=== PATIENT | male | born 1940 | race Two or more races ===

== ENCOUNTER → 2016-04-30 | Outpatient (CLI) | payer MEDICARE, OTHER ==
[~2016-04-30] MED LIST: ASPIR 8181 MG ORAL; CARVEDILOL3.125 MG ORAL; COLACE100 MG ORAL; FISH OIL 500 M1 EAC1 PO; FLOMAX0.4 MG ORAL; KEFLEX500 MG ORAL; LOSARTAN POTASS25 MG ORAL; LOVAZA1 GM ORAL; PROSCAR5 MG ORAL; SIMVASTATIN20 MG ORAL; TAMSULOSIN HCL0.4 MG ORAL
[2016-04-30 09:18] LABS: BASOPHILS % (AUTO) 1.5 % (0.0-2.0); EOSINOPHILS % (AUTO) 5.5 % (0.0-3.0); LYMPHOCYTES % (AUTO) 23.8 % (20.0-45.0); MEAN CORPUSCULAR HEMOGLOBIN 27.6 PG (27.0-31.0); MEAN CORPUSCULAR HGB CONC 31.7 G/DL (32.0-36.0); MEAN CORPUSCULAR VOLUME 87 FL (80-99); MEAN PLATELET VOLUME 6.1 FL (6.5-10.1); MONOCYTES % (AUTO) 5.7 % (1.0-10.0); NEUTROPHILS % (AUTO) 63.6 % (45.0-75.0); PLATELET COUNT 276 K/UL (150-450); RED BLOOD COUNT 5.69 M/UL (4.70-6.10); RED CELL DISTRIBUTION WIDTH 12.5 % (11.6-14.8); WHITE BLOOD COUNT 9.2 K/UL (4.8-10.8)
[2016-04-30 09:26] LABS: HEMOGLOBIN A1C 8.2 % (< 6.0)
[2016-04-30 09:52] LABS: CHOLESTEROL/HDL RATIO 4.6 (3.3-4.4)
[2016-04-30 10:13] LABS: PSA TOTAL 0.2 ng/mL (< 4.5); THYROID STIMULATING HORMONE 5.08 uIU/mL (0.300-4.500)
--- NOTE | 2016-04-30 11:34 | Diagnostic Imaging Report ---
Indications: COUGH Technique: AP and lateral chest Findings: Comparison: 04/16/13, 08/23/2009 Inspiratory effort has improved. Heart size, pulmonary vasculature within normal limits. Lungs, pleura clear. Aortic arch calcified. Bridging osteophytes/syndesmophytes along the anterior margin of the thoracic spine. 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
[2016-05-02 09:37] LABS: FOLIC ACID 15.4 ng/mL (3.1-17.5)
== END | disposition home or self-care (01) ==
LOC: RAD 08:18
DX: R06.02 Shortness of breath (principal); I70.0 Atherosclerosis of aorta; Z86.73 Personal history of transient ischemic attack (TIA), and cerebral infarction without residual deficits; I10 Essential (primary) hypertension; I73.9 Peripheral vascular disease, unspecified; I25.10 Atherosclerotic heart disease of native coronary artery without angina pectoris
CPT/HCPCS: 36415; 71020; 80061; 82607; 82746; 83036; 84153; 84443; 85025

== ENCOUNTER 2016-10-19 06:02 | Emergency (ER) | payer MEDICARE, OTHER ==
[~2016-10-19] VITALS: Ht 160 cm; Wt 104.8 kg
[2016-10-19 06:15] VITALS: BP 135/66
--- NOTE | 2016-10-19 06:49 | Emergency Room Report ---
History of Present Illness General Chief Complaint: Abnormal Labs Source: Patient, Family Member Present Illness HPI Is a 76-year-old male with a history of hypertension and diabetes. he presents here for lab draw. He actually checked in here instead of going to outpatient lab. He has no complaint. No fever or chills. No nausea no vomiting. Allergies: Coded Allergies: No Known Allergies (Verified Allergy, Unknown, 08/12/06) Patient History Past Medical History: see triage record, old chart reviewed, DM, HTN Past Surgical History: other Pertinent Family History: none Social History: Denies: smoking Immunizations: other Reviewed Nursing Documentation: PMH: Agreed, PSxH: Agreed Nursing Documentation-PMH Hx Cardiac Problems: No Hx Hypertension: Yes - hyperlipidemia Hx Pacemaker: No Hx Asthma: No Hx COPD: No Hx Diabetes: Yes Hx Cancer: No Hx Gastrointestinal Problems: No Hx Dialysis: No Hx Neurological Problems: No Hx Cerebrovascular Accident: Yes - 2006 Hx Seizures: No Review of Systems Eye: Denies: blurred vision, eye pain ENT: Denies: ear pain, nose congestion, throat swelling Respiratory: Denies: cough, shortness of breath Cardiovascular: Denies: chest pain, palpitations Gastrointestinal: Denies: abdominal pain, diarrhea, nausea, vomiting Musculoskeletal: Denies: back pain, joint pain Skin: Denies: rash Neurological: Denies: headache, numbness Endocrine: Denies: increased thirst, increased urine Hematologic/Lymphatic: Denies: easy bruising All Other Systems: negative except mentioned in HPI Physical Exam Vital Signs Date Time Temp Pulse Resp B/P Pulse Ox O2 Delivery O2 Flow Rate FiO2 10/19/16 06:09 97.5 61 14 135/66 95 Room Air vitals normal Sp02 EP Interpretation: reviewed, normal General Appearance: well appearing, no apparent distress, alert, obese Head: normocephalic, atraumatic Eyes: bilateral eye EOMI, bilateral eye PERRL ENT: hearing grossly normal, normal pharynx Neck: full range of motion, supple, no meningismus Respiratory: chest non-tender, lungs clear, normal breath sounds Cardiovascular #1: regular rate, rhythm, no murmur Gastrointestinal: normal bowel sounds, non tender, no mass, no organomegaly, no bruit, non-distended Musculoskeletal: back normal, gait/station normal, normal range of motion Psychiatric: mood/affect normal Skin: warm/dry Medical Decision Making Diagnostic Impression: Primary Impression: General medical exam Additional Impression: Routine lab draw ER Course Patient here for routine lab draw. Because that he clipped on the patient's name and her started triage the patient, he cannot be done as an outpatient. Last Vital Signs Date Time Temp Pulse Resp B/P Pulse Ox O2 Delivery O2 Flow Rate FiO2 10/19/16 06:15 97.5 61 14 135/66 95 Room Air Status: improved Disposition: HOME, SELF-CARE Condition: Stable Additional Instructions: Followup with your Dr. in 7 days. Return if worse. ISABELLA MORRIS M.D. Oct 19, 2016 06:49
[2016-10-19 06:50] VITALS: BP 138/60
[2016-10-19 07:13] LABS: BASOPHILS % (AUTO) 1.5 % (0.0-2.0); EOSINOPHILS % (AUTO) 4.8 % (0.0-3.0); LYMPHOCYTES % (AUTO) 26.9 % (20.0-45.0); MEAN CORPUSCULAR HEMOGLOBIN 28.4 PG (27.0-31.0); MEAN CORPUSCULAR HGB CONC 33.2 G/DL (32.0-36.0); MEAN CORPUSCULAR VOLUME 86 FL (80-99); MEAN PLATELET VOLUME 6.3 FL (6.5-10.1); MONOCYTES % (AUTO) 6.7 % (1.0-10.0); NEUTROPHILS % (AUTO) 60.2 % (45.0-75.0); PLATELET COUNT 231 K/UL (150-450); RED BLOOD COUNT 4.99 M/UL (4.70-6.10); RED CELL DISTRIBUTION WIDTH 12.6 % (11.6-14.8); WHITE BLOOD COUNT 9.4 K/UL (4.8-10.8)
[2016-10-19 07:41] LABS: PSA TOTAL 0.2 ng/mL (< 4.5)
[2016-10-19 08:02] LABS: CHLORIDE 103 mEQ/L (98-107); POTASSIUM 4.2 mEQ/L (3.4-4.9); SODIUM 140 mEQ/L (135-145)
[2016-10-19 08:03] LABS: ANION GAP 14 (5-15); CALCIUM 9.2 mg/dL (8.6-10.2); CARBON DIOXIDE 23 mEQ/L (20-30); CREATININE 1.4 mg/dL (0.7-1.2); MAGNESIUM 2.2 MG/DL (1.5-2.4); PHOSPHORUS 4.4 MG/DL (2.5-4.9)
[2016-10-19 08:04] LABS: ALANINE AMINOTRANSFERASE 7 U/L (3-41); ASPARTATE AMINO TRANSFERASE 19 U/L (5-40); CHOLESTEROL 133 mg/dL (< 200); CHOLESTEROL/HDL RATIO 3.8 (3.3-4.4); LDL CHOLESTEROL (CALC.) 71 mg/dL (60-99)
== END 2016-10-19 06:50 | disposition home or self-care (01) ==
LOC: EMR 06:32
DX: Z00.00 Encounter for general adult medical examination without abnormal findings (principal); I10 Essential (primary) hypertension; E78.5 Hyperlipidemia, unspecified; E11.9 Type 2 diabetes mellitus without complications; Z86.73 Personal history of transient ischemic attack (TIA), and cerebral infarction without residual deficits
CPT/HCPCS: 36415; 80053; 80061; 82306; 82378; 82607; 82746; 83036; 83735; 84100; 84153; 84443; 85025; 99282

== ENCOUNTER 2016-12-30 08:11 | Outpatient (CLI) | payer MEDICARE, OTHER ==
[2016-12-30 09:20] LABS: THYROID STIMULATING HORMONE 4.11 uIU/mL (0.300-4.500)
== END 2016-12-30 10:11 | disposition home or self-care (01) ==
LOC: LAB 08:11
DX: R94.6 Abnormal results of thyroid function studies (principal)
CPT/HCPCS: 36415; 84436; 84443; 84480

== ENCOUNTER 2017-06-24 09:00 | Outpatient (CLI) | payer MEDICARE, OTHER ==
[2017-06-24 09:26] VITALS: BP 129/50
--- NOTE | 2017-06-24 10:15 | GI Initial Consult Note ---
Shivani Personh Hunter NMykePMyke 06/24/17 1015: History of Present Illness General Date patient seen: Jun 24, 2017 Time patient seen: 10:09 Referring physician: JOSHUA Reason for Consultation: RECTAL BLEED Present Illness HPI This is 72-year-old, gentleman referred by Dr. Sam for reports of rectal bleed x 2-3 weeks. Last colonoscopy in 2013, with history of diverticulosis, hemorrhoids and polyps. Patient was on aspirin which he has stopped on 06/17/17. Denies any abdominal pain. Denies any unintentional weight loss or changes in dietary habits. Home Meds Reported Medications [DM med] No Conflict Check 06/24/17 Docusate Sodium* (COLACE*) 100 Mg Capsule, 100 MG ORAL TWICE A DAY, CAP 11/25/13 Tamsulosin HCl (Flomax) 0.4 Mg Cap, 0.4 MG ORAL DAILY, CAP 11/25/13 Losartan Potassium* (LOSARTAN POTASSIUM*) 25 Mg Tablet, 100 MG ORAL HS, TAB 04/16/13 Simvastatin (ZOCOR) 20 Mg Tablet, 20 MG ORAL BEDTIME, TAB 10/03/12 Carvedilol* (CARVEDILOL*) 3.125 Mg Tablet, 3.125 MG ORAL EVERY 12 HOURS, TAB 10/03/12 Discontinued Reported Medications [place]-3 Acid Ethyl Esters (LOVAZA) 1 Gm Capsule, 1 GM ORAL DAILY, #30 CAP 0 Refills 07/13/13 Aspirin* (ASPIR 81*) 81 Mg Tablet.dr, 81 MG ORAL DAILY, TAB 10/03/12 Med list reviewed/reconciled: Yes Allergies: Coded Allergies: No Known Allergies (Verified Allergy, Unknown, 08/12/06) Patient History History Provided By: Patient, Medical Record [facility] Narrative History of hypertension. Prior history of stroke with memory impairment. History of dyslipidemia. Dark stool with an EGD and colonoscopy with Dr. Duke. Obstructive sleep apnea with the AHI of 53.8, CPAP titration of 14-cm water noncompliance with CPAP. History of mild obesity. Ruptured appendix in 1968, bilateral cataract surgery, cholecystectomy in August of 2009. Family History Narrative SOCIAL HISTORY: Patient is retired grajeda. He is , has from his . No smoking, alcohol or drugs. FAMILY HISTORY: Noncontributory Social History: Denies: smoking, alcohol use, drug use, other Review of Systems All Other Systems: negative except mentioned in HPI Physical Exam Vital Signs Date Time Temp Pulse Resp B/P (MAP) Pulse Ox O2 Delivery O2 Flow Rate FiO2 06/24/17 09:26 98.0 68 18 129/50 95 98.0 Sp02 EP Interpretation: reviewed, normal General Appearance: well appearing, no apparent distress, alert, thin Head: normocephalic EENT: PERRL/EOMI, normal ENT inspection Neck: supple Respiratory: normal breath sounds, no respiratory distress Cardiovascular: normal rate Gastrointestinal: normal inspection, non tender, soft, normal bowel sounds, non -distended Rectal: deferred Genitourinary: deferred Musculoskeletal: normal inspection, back normal Neurologic: normal inspection, alert, oriented x3, responsive Psychiatric: normal inspection, judgement/insight normal, memory normal Skin: normal inspection, normal color, no rash, warm/dry, palpation normal, well hydrated Lymphatic: normal inspection, no adenopathy GI: Plan Problems: (1) Rectal bleeding (2) Colonoscopy planned (3) Diverticulosis (4) Colon polyps (5) Cirrhosis (6) Internal hemorrhoid Plan Colonoscopy scheduled 06/27/17. - CLD & (Nulytely/Suprep/Movi-Prep) prep instructions given and acknowledged by patient. - NPO @ [place] day prior procedure explained. Seen with Dr. Duke. Thank you for this patient referral. MICHAEL DUKE 07/01/17 5059: History of Present Illness Present Illness Home Meds Reported Medications [DM med] No Conflict Check 06/24/17 Docusate Sodium* (COLACE*) 100 Mg Capsule, 100 MG ORAL TWICE A DAY, CAP 11/25/13 Tamsulosin HCl (Flomax) 0.4 Mg Cap, 0.4 MG ORAL DAILY, CAP 11/25/13 Losartan Potassium* (LOSARTAN POTASSIUM*) 25 Mg Tablet, 100 MG ORAL HS, TAB 04/16/13 Simvastatin (ZOCOR) 20 Mg Tablet, 20 MG ORAL BEDTIME, TAB 10/03/12 Carvedilol* (CARVEDILOL*) 3.125 Mg Tablet, 3.125 MG ORAL EVERY 12 HOURS, TAB 10/03/12 Discontinued Reported Medications [place]-3 Acid Ethyl Esters (LOVAZA) 1 Gm Capsule, 1 GM ORAL DAILY, #30 CAP 0 Refills 07/13/13 Aspirin* (ASPIR 81*) 81 Mg Tablet., 81 MG ORAL DAILY, TAB 10/03/12 Allergies: Coded Allergies: No Known Allergies (Verified Allergy, Unknown, 08/12/06) GI: Plan Plan The patient was seen and examined at bedside and all new and available data was reviewed in the patients chart. I agree with the above findings, impression and plan. (Patient seen earlier today. Signature stamp does not reflect patient encounter time.). - [facility] Hunter Gloria Jun 24, 2017 10:15 MICHAEL DUKE Jul 01, 2017 13:29
[2017-06-24] MEDS ORDERED: DM med (13:10)
== END 2017-06-24 09:32 | disposition home or self-care (01) ==
LOC: PAN 09:00
DX: K62.5 Hemorrhage of anus and rectum (principal); K57.90 Diverticulosis of intestine, part unspecified, without perforation or abscess without bleeding; K63.5 Polyp of colon; K74.60 Unspecified cirrhosis of liver; K64.8 Other hemorrhoids; Z79.82 Long term (current) use of aspirin; G47.33 Obstructive sleep apnea (adult) (pediatric); E78.5 Hyperlipidemia, unspecified; Z90.49 Acquired absence of other specified parts of digestive tract

== ENCOUNTER 2017-06-27 07:11 | Day surgery (SDC) | payer MEDICARE, OTHER ==
[~2017-06-27] VITALS: Ht 157.5 cm; Wt 99.8 kg
[2017-06-27] VITALS (12 sets, daily range): BP systolic 117–141; BP diastolic 54–70
[~2017-06-27 07:11] MED LIST changes: +DM med
--- NOTE | 2017-06-27 08:28 | Pre-Procedure Note/Attestation ---
Pre-Procedure Note/Attestation Complete Prior to Procedure Planned Procedure: not applicable Procedure Narrative: colonoscopy Indications for Procedure Pre-Operative Diagnosis: rectal bleed, h/o colon polyps Attestation I attest that I discussed the nature of the procedure; its benefits; risks and complications; and alternatives (and the risks and benefits of such alternatives ), prior to the procedure, with the patient (or the patient's legal floor representative). I attest that, if there was a reasonable possibility of needing a blood transfusion, the patient (or the patient's legal floor representative) was given the [facility] standardized written summary, pursuant to the Randall Magdy Blood Safety Act ([place] Health and Safety Code # 1645, as amended). I attest that I re-evaluated the patient just prior to the surgery and that there has been no change in the patient's H&P, except as documented below: MICHAEL DUKE Jun 27, 2017 08:28
--- NOTE | 2017-06-27 08:28 | Short Stay Surgery H&P ---
History of Present Illness History of Present Illness Chief Complaint see recent office consult note HPI Antonio Maldonado is a 76 year old male who was admitted on for Rectal Bleeding Patient History Allergies: Coded Allergies: No Known Allergies (Verified Allergy, Unknown, 08/12/06) PAST MEDICAL HISTORY: Past Surgeries: Social History: Medication History Scheduled Carvedilol* (Carvedilol*), 3.125 MG ORAL EVERY 12 HOURS, (Reported) Docusate Sodium* (Colace*), 100 MG ORAL TWICE A DAY, (Reported) Losartan Potassium* (Losartan Potassium*), 100 MG ORAL HS, (Reported) Simvastatin (Zocor), 20 MG ORAL BEDTIME, (Reported) Tamsulosin HCl (Flomax), 0.4 MG ORAL DAILY, (Reported) Miscellaneous Medications [DM med], (Reported) Discontinued Medications Aspirin* (Aspir 81*), 81 MG ORAL DAILY, (Reported) Discontinued Reason: MD discontinued med [place]-3 Acid Ethyl Esters (Lovaza), 1 GM ORAL DAILY, (Reported) Discontinued Reason: MD discontinued med Physical Exam Vital Signs Last Vital Signs Date Time Temp Pulse Resp B/P (MAP) Pulse Ox O2 Delivery O2 Flow Rate FiO2 06/27/17 07:40 97.2 67 20 117/54 96 Room Air 97.2 Plan Attestation Are the patient's medical conditions optimized for surgery? MICHAEL DUKE Jun 27, 2017 08:28
[2017-06-27] MEDS ORDERED: LR 1000ml ONE (09:00)
[2017-06-27] MEDS ORDERED: Propofol 200mg/20ml IV ONE (09:00)
[2017-06-27] MEDS ORDERED: Lidocaine 1% MPF 10mg/ml 5ml ONE (09:00)
--- NOTE | 2017-06-27 09:39 | Immediate Post-Op Evaluation ---
Immediate Post-Op Evalulation Immediate Post-Op Evalulation Procedure: colonoscopy Date of Evaluation: Jun 27, 2017 Time of Evaluation: 09:39 IV Fluids: 600 Blood Pressure Systolic: 129 Blood Pressure Diastolic: 59 Pulse Rate: 67 Respiratory Rate: 14 O2 Sat by Pulse Oximetry: 99 Temperature (Fahrenheit): 97.7 Pain Score (1-10): 0 Nausea: No Vomiting: No Complications none Patient Status: awake, reacts, patent Hydration Status: adequate Drug: none KALANI DEAL CRNA Jun 27, 2017 09:39
--- NOTE | 2017-06-27 09:41 | Anethesia Preoperative Eval ---
Anesthesia Pre-op PMH/ROS General Date of Evaluation: Jun 27, 2017 Time of Evaluation: 09:00 Anesthesiologist: tequila ASA Score: ASA 3 Mallampati Score Class I : Soft palate, uvula, fauces, pillars visible Class II: Soft palate, uvula, fauces visible Class III: Soft palate, base of uvula visible Class IV: Only hard plate visible Mallampati Classification: Class III Surgeon: renny Diagnosis: rectal bleed Surgical Procedure: colonoscopy Anesthesia History: none Family History: no anesthesia problems Allergies: Coded Allergies: No Known Allergies (Verified Allergy, Unknown, 08/12/06) Medications: see eMAR Past Medical History Cardiovascular: Reports: HTN, CAD Pulmonary: Reports: ABENA, Denies: asthma, COPD, other Gastrointestinal/Genitourinary: Reports: GERD, Denies: CRI, ESRD, other Neurologic/Psychiatric: Reports: CVA, Denies: dementia, depression/anxiety, TIA, other Endocrine: Reports: DM, Denies: hypothyroidism, steroids, other HEENT: Denies: cataract (L), cataract (R), glaucoma, STILL[place] (L), STILLAGUAMISH (R), other Hematology/Immune: Denies: anemia, DVT, bleeding disorder, other Musculoskeletal/Integumentary: Denies: OA, RA, DJD, DDD, edema, other Other: obesity PSxH Narrative: unknown Anesthesia Pre-op Phys. Exam Physician Exam Last Vital Signs Date Time Temp Pulse Resp B/P (MAP) Pulse Ox O2 Delivery O2 Flow Rate FiO2 06/27/17 07:40 97.2 67 20 117/54 96 Room Air 97.2 Constitutional: NAD Neurologic: CN 2-12 intact Cardiovascular: RRR Respiratory: CTA Gastrointestinal: S/NT/ND Airway Exam Mallampati Classification 3 Mallampati Score: Class III MO: limited Neck: thick ROM: full Dentures: no upper, no lower Anesthesia Pre-op A/P Studies Pre-op Studies: EKG - sr Risk Assessment & Plan Plan: mac Status Change Before Surgery: No Pre-Antibiotics Drug: none KALANI DEAL CRNA Jun 27, 2017 09:41
--- NOTE | 2017-06-27 09:47 | Endoscopy Procedure Note ---
Endoscopy Procedure Note General Indication for Procedure: gib, polyps Procedures Performed: colonoscopy Operative Findings/Diagnosis: 8 polyps Specimen: yes Pt Tolerated Procedure Well: Yes Estimated Blood Loss: none Anesthesia Anesthesiologist: jone Anesthesia: MAC Inserted Devices Implant(s) used?: No Quality Quality of Bowel Preparation: Good Did scope reach the cecum?: Yes Was there any complications?: No GI Core Measures 50 yrs or older w/o bx or poly: No 10yrs. F/U not recommended: Yes If not recommended, why?: Above average risk 10 yrs. F/U needed: Yes 18 years or older w/prev. colo: Yes <3yrs. since last colonoscopy: No MICHAEL DUKE Jun 27, 2017 09:47
--- NOTE | 2017-06-27 13:48 | 48 Hour Post Anesthesia Eval ---
Post Anesthesia Evaluation Procedure: colonoscopy Date of Evaluation: Jun 27, 2017 Time of Evaluation: 13:48 Blood Pressure Systolic: 125 0: 69 Pulse Rate: 67 Respiratory Rate: 14 O2 Sat by Pulse Oximetry: 99 Airway: patent Nausea: No Vomiting: No Hydration Status: adequate Cardiopulmonary Status: stable Mental Status/LOC: patient returned to baseline Follow-up Care/Observations: none Post-Anesthesia Complications: none Follow-up care needed: N/A KALANI DEAL CRNA Jun 27, 2017 13:48
--- NOTE | 2017-06-27 17:45 | Procedure Note ---
DATE OF PROCEDURE: 06/27/2017 SURGEON: Bon Bryant M.D. REFERRING PHYSICIAN: Artur Sam M.D. PROCEDURE: Colonoscopy with biopsy and polypectomy. ANESTHESIA: Per LEGAL DOCUMENT SPECIALIST, Ashwini Corrales. INSTRUMENT: Olympus adult flexible colonoscope. INDICATION: Rectal bleeding, history of colonic polyp. The procedure, risks, benefits, and possible consequences, including hemorrhage, aspiration, perforation and infection, and alternative treatments, were explained to the patient/legal guardian by Dr. Bon Bryant and the patient/legal guardian understood and accepted these risks. DESCRIPTION OF PROCEDURE: After informed consent was obtained and the patient was adequately sedated, first rectal examination was performed which was positive for external hemorrhoids. Then the scope was advanced from the rectum into the cecum documented by the appendiceal orifice, ileocecal valve, and right upper quadrant palpation. Quality of prep was very good. The patient had a total of eight polyps, six in the ascending colon and two in the transverse colon polyps, so a total of eight polyps. Of these polyps, three of them were removed with cold snare polypectomy technique. None of these polyps were over 6 mm. The patient had evidence of diverticulosis, both in the left and right colon. Retroflexion of the rectum was performed which showed small internal hemorrhoids. The patient tolerated the procedure very well without any complications. SUMMARY OF FINDINGS: 1. Total of eight polyps removed. See above for details. 2. Diverticulosis. 3. Small internal hemorrhoids and some larger external hemorrhoids. RECOMMENDATIONS: 1. Follow up biopsy results. 2. Repeat colonoscopy in three years. 3. Treat for external hemorrhoids, positive the source of bleeding. I want to thank Dr. Artur Sam for this kind referral. Bon Bryant M.D. DR: Shahid JOB#: [id number] CC: Artur Sam M.D.; Fax#: [phone]
--- NOTE | 2017-06-29 16:33 | Cardiology Report ---
APPROVED REPORT EKG Measurement Heart [id number] Normal sinus rhythm Normal ECG
== END 2017-06-27 11:30 | disposition home or self-care (01) ==
LOC: GAS 07:11
DX: D12.2 Benign neoplasm of ascending colon (principal); D12.3 Benign neoplasm of transverse colon; K57.90 Diverticulosis of intestine, part unspecified, without perforation or abscess without bleeding; K64.8 Other hemorrhoids; K64.4 Residual hemorrhoidal skin tags; Z79.82 Long term (current) use of aspirin; I11.9 Hypertensive heart disease without heart failure; G47.33 Obstructive sleep apnea (adult) (pediatric); K21.9 Gastro-esophageal reflux disease without esophagitis; E11.9 Type 2 diabetes mellitus without complications; Z86.73 Personal history of transient ischemic attack (TIA), and cerebral infarction without residual deficits
CPT/HCPCS: 45380; 82962; 93005; J2704; J7120; 94003; 94150

== ENCOUNTER 2018-03-04 09:00 | Outpatient (RCR) | payer MEDICARE, OTHER ==
[~2018-03-04 09:00] MED LIST changes: +ASPIRIN81 MG ORAL
== END 2018-03-20 | disposition home or self-care (01) ==
LOC: PTY 09:00
DX: R26.89 Other abnormalities of gait and mobility (principal); Z86.73 Personal history of transient ischemic attack (TIA), and cerebral infarction without residual deficits; Z91.81 History of falling; I10 Essential (primary) hypertension; E11.9 Type 2 diabetes mellitus without complications
CPT/HCPCS: 97110; 97116; 97162; G8978; G8979

== ENCOUNTER 2019-03-23 09:38 | Outpatient (CLI) | payer MEDICARE, OTHER ==
--- NOTE | 2019-03-24 10:34 | General Progress Note ---
Assessment/Plan Problem List: (1) History of cholecystectomy ICD Codes: Z98.89 - History of cholecystectomy SNOMED: 274441454 (2) Multiple injuries due to trauma ICD Codes: T07.XXXA - Unspecified multiple injuries, initial encounter SNOMED: 762020318 (3) Colon polyps ICD Codes: K63.5 - Colon polyps SNOMED: 51752007 (4) Internal hemorrhoid ICD Codes: K64.8 - Internal hemorrhoid SNOMED: 47197810 (5) Rectal bleeding ICD Codes: K62.5 - Hemorrhage of anus and rectum SNOMED: 84073203 (6) Diverticulosis ICD Codes: K57.90 - Diverticulosis SNOMED: 941960060 (7) Cirrhosis ICD Codes: K74.60 - Cirrhosis SNOMED: 95075963 (8) HTN (hypertension) ICD Codes: I10 - HTN (hypertension) SNOMED: 89660846 (9) Hypercholesteremia ICD Codes: E78.0 - Hypercholesteremia SNOMED: 16412681 (10) UTI (urinary tract infection) ICD Codes: N39.0 - Urinary tract infection, site not specified SNOMED: 00247252 Assessment/Plan: SUMMARY OF FINDINGS: 2017 1. Total of eight polyps removed. See above for details. 2. Diverticulosis. 3. Small internal hemorrhoids and some larger external hemorrhoids. plan EGD to eval for varices abd us for cirrhosis fu repeat colon in 2020 Subjective ROS Limited/Unobtainable: Yes Allergies: Coded Allergies: No Known Allergies (Verified , 08/12/06) Objective General Appearance: alert EENT: normal ENT inspection Neck: supple Cardiovascular: normal rate Respiratory/Chest: lungs clear Abdomen: non tender, soft, hypoactive bowel sounds Extremities: non-tender Bon Bryant MD Mar 24, 2019 10:34
== END 2019-03-23 11:38 | disposition home or self-care (01) ==
LOC: PAN 09:38
DX: K63.5 Polyp of colon (principal); K64.8 Other hemorrhoids; K62.5 Hemorrhage of anus and rectum; K57.90 Diverticulosis of intestine, part unspecified, without perforation or abscess without bleeding; K74.60 Unspecified cirrhosis of liver; I10 Essential (primary) hypertension; E78.00 Pure hypercholesterolemia, unspecified; N39.0 Urinary tract infection, site not specified; Z90.49 Acquired absence of other specified parts of digestive tract; T07.XXXA Unspecified multiple injuries, initial encounter; K64.4 Residual hemorrhoidal skin tags

== ENCOUNTER 2019-03-24 08:45 | Outpatient (CLI) | payer MEDICARE, OTHER ==
--- NOTE | 2019-03-24 10:15 | Diagnostic Imaging Report ---
Indication: Abdominal pain Technique: Grayscale and duplex Doppler imaging of the abdomen performed. Comparison: None Findings: The liver is notable for some mild surface nodularity and appears heterogeneous an echogenic. Doppler interrogation of the main portal vein shows patency with hepatopedal, monophasic flow. There is no biliary ductal dilatation identified. Gallbladder is absent. CBD is 7.7 mm. There demonstrated part of the pancreas, aorta and IVC show no definite abnormalities though not well seen. Both kidneys are atrophic and appears slightly increased in echogenicity. There are renal cysts bilaterally. There is no hydronephrosis. IMPRESSION: Fatty liver with heterogeneous liver. Chronic disease suspected. Medical renal disease. Bilateral renal cysts. Status post cholecystectomy
== END 2019-03-24 10:45 | disposition home or self-care (01) ==
LOC: ULS 08:45
DX: R10.9 Unspecified abdominal pain (principal); K76.0 Fatty (change of) liver, not elsewhere classified; N28.1 Cyst of kidney, acquired; Z90.49 Acquired absence of other specified parts of digestive tract; N18.9 Chronic kidney disease, unspecified
CPT/HCPCS: 76700

== ENCOUNTER 2019-06-15 09:11 | Outpatient (CLI) | payer MEDICARE, OTHER ==
[~2019-06-15 09:11] MED LIST changes: +ATORVASTATIN CA20 MG ORAL; +GABAPENTIN100 MG ORAL; +HYDROCHLOROTHIA25 MG ORAL; +METFORMIN HCL1000 M1 ORAL; +NAMENDA5 MG ORAL; +VITAMIN D250000 UNI1 ORAL
[2019-06-15 14:23] VITALS: BP 128/57
--- NOTE | 2019-06-16 13:33 | General Progress Note ---
Assessment/Plan Assessment/Plan: Assessment/Plan Problem List: (1) History of cholecystectomy ICD Codes: Z98.89 - History of cholecystectomy SNOMED: 533543294 (2) Multiple injuries due to trauma ICD Codes: T07.XXXA - Unspecified multiple injuries, initial encounter SNOMED: 633624293 (3) Colon polyps ICD Codes: K63.5 - Colon polyps SNOMED: 53532144 (4) Internal hemorrhoid ICD Codes: K64.8 - Internal hemorrhoid SNOMED: 02997369 (5) HTN (hypertension) ICD Codes: I10 - HTN (hypertension) SNOMED: 65314095 (6) Diverticulosis Assessment/Plan: s/p EGD s/p abd us fatty liver now c/o of diarrhea and unwanted wt loss plan colonoscopy Subjective ROS Limited/Unobtainable: Yes Allergies: Coded Allergies: No Known Allergies (Verified , 03/26/19) Objective Last 24 Hour Vital Signs Date Time Temp Pulse Resp B/P (MAP) Pulse Ox O2 Delivery O2 Flow Rate FiO2 06/15/19 14:23 97.6 57 16 128/57 (80) 97 General Appearance: alert EENT: normal ENT inspection Neck: supple Cardiovascular: normal rate Respiratory/Chest: decreased breath sounds Abdomen: normal bowel sounds, non tender, soft Extremities: non-tender Bon Bryant MD Jun 16, 2019 13:33
== END 2019-06-15 11:11 | disposition home or self-care (01) ==
LOC: PAN 09:11
DX: K63.5 Polyp of colon (principal); K64.8 Other hemorrhoids; I10 Essential (primary) hypertension; K57.90 Diverticulosis of intestine, part unspecified, without perforation or abscess without bleeding; T07.XXXA Unspecified multiple injuries, initial encounter; Z98.890 Other specified postprocedural states; R19.7 Diarrhea, unspecified
CPT/HCPCS: 99212

== ENCOUNTER 2019-06-18 07:00 | Day surgery (SDC) | payer MEDICARE, OTHER ==
[~2019-06-18] VITALS: Ht 162.6 cm; Wt 89.8 kg
[2019-06-18] VITALS (8 sets, daily range): BP systolic 104–134; BP diastolic 53–66
[2019-06-18] MEDS ORDERED: LR 1000ml 1,000 ML IVLG SCH ×2 (07:15→08:17)
--- NOTE | 2019-06-18 08:17 | Anethesia Preoperative Eval ---
Anesthesia Pre-op PMH/ROS General Date of Evaluation: Jun 18, 2019 Anesthesiologist: Rik ASA Score: ASA 3 Mallampati Score Class I : Soft palate, uvula, fauces, pillars visible Class II: Soft palate, uvula, fauces visible Class III: Soft palate, base of uvula visible Class IV: Only hard plate visible Mallampati Classification: Class III Surgeon: Annette Diagnosis: Diarrhea Surgical Procedure: Colonoscopy Anesthesia History: none Family History: no anesthesia problems Allergies: Coded Allergies: No Known Allergies (Verified , 03/26/19) Medications: see eMAR Patient NPO?: Yes NPO Date: Jun 18, 2019 NPO Time: 00:00 Past Medical History Cardiovascular: Reports: HTN, other - HLD; Denies: CAD, DE, valve dz, arrhythmia Pulmonary: Reports: ABENA - refuses CPAP; Denies: asthma, COPD, other Gastrointestinal/Genitourinary: Reports: GERD, other - BPH, NAFLD with cirrrhosis; Denies: CRI, ESRD Neurologic/Psychiatric: Reports: dementia, CVA; Denies: depression/anxiety, TIA, other Endocrine: Reports: DM - FS this am 97; Denies: hypothyroidism, steroids, other HEENT: Reports: COCOPAH (L); Denies: cataract (L), cataract (R), glaucoma, COCOPAH (R), other Hematology/Immune: Denies: anemia, DVT, bleeding disorder, other Musculoskeletal/Integumentary: Reports: DJD; Denies: OA, RA, DDD, edema, other Other: obesity PSxH Narrative: spine sx, ashley, appy, left tibia sx, bilateral cataract Anesthesia Pre-op Phys. Exam Physician Exam see chart Constitutional: NAD Cardiovascular: RRR Respiratory: CTA Airway Exam Mallampati Score: Class III MO: limited ROM: limited Teeth: missing Dentures: upper, lower Anesthesia Pre-op A/P Labs see chart Studies Pre-op Studies: EKG - SB Risk Assessment & Plan Assessment: ASA III Plan: MAC Status Change Before Surgery: No Pre-Antibiotics Drug: N/A Tanya Santiago MD Jun 18, 2019 08:17
[2019-06-18] MEDS ORDERED: DiphenhydrAMINE 50mg/ml Inj IVP PRN (08:30)
--- NOTE | 2019-06-18 08:57 | Pre-Procedure Note/Attestation ---
Pre-Procedure Note/Attestation Complete Prior to Procedure Planned Procedure: not applicable Procedure Narrative: colonoscopy Indications for Procedure Pre-Operative Diagnosis: diarrhea Attestation I attest that I discussed the nature of the procedure; its benefits; risks and complications; and alternatives (and the risks and benefits of such alternatives ), prior to the procedure, with the patient (or the patient's legal operations support representative). I attest that, if there was a reasonable possibility of needing a blood transfusion, the patient (or the patient's legal operations support representative) was given the [facility] Services standardized written summary, pursuant to the Randall Magdy Blood Safety Act ([place] Health and Safety Code # 1645, as amended). I attest that I re-evaluated the patient just prior to the surgery and that there has been no change in the patient's H&P, except as documented below: Bon Bryant MD Jun 18, 2019 08:57
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
[2019-06-18] MEDS ORDERED: Lidocaine 1% MPF 10mg/ml 5ml ONE (09:00)
[2019-06-18] MEDS ORDERED: LR 1000ml ONE (09:00)
[2019-06-18] MEDS ORDERED: Propofol 200mg/20ml IV ONE (09:00)
--- NOTE | 2019-06-18 09:32 | Endoscopy Procedure Note ---
Endoscopy Procedure Note General Indication for Procedure: diarrhea Procedures Performed: colonoscopy Operative Findings/Diagnosis: 10 polyps Specimen: yes Pt Tolerated Procedure Well: Yes Estimated Blood Loss: none Anesthesia Anesthesiologist: kyler Anesthesia: MAC Inserted Devices Implant(s) used?: No Quality Quality of Bowel Preparation: Poor Did scope reach the cecum?: Yes Was there any complications?: No GI Core Measures 50 yrs or older w/o bx or poly: No 10yrs. F/U recommended: Yes If not recommended, why?: Above average risk 18 years or older w/prev. colo: Yes <3yrs. since last colonoscopy: No Bon Bryant MD Jun 18, 2019 09:32
--- NOTE | 2019-06-18 09:38 | Immediate Post-Op Evaluation ---
Immediate Post-Op Evalulation Immediate Post-Op Evalulation Procedure: colonoscopy Date of Evaluation: Jun 18, 2019 Time of Evaluation: 09:40 IV Fluids: 300 Blood Products: 0 Estimated Blood Loss: 0 Urinary Output: 0 Blood Pressure Systolic: 105 Blood Pressure Diastolic: 55 Pulse Rate: 57 Respiratory Rate: 16 O2 Sat by Pulse Oximetry: 100 Temperature (Fahrenheit): 97.5 Pain Score (1-10): 0 Nausea: No Vomiting: No Complications 0 Patient Status: awake, reacts, patent, none Hydration Status: adequate Drug: n/A Tanya Santiago MD Jun 18, 2019 09:38
--- NOTE | 2019-06-18 09:39 | 48 Hour Post Anesthesia Eval ---
Post Anesthesia Evaluation Procedure: colonoscopy Date of Evaluation: Jun 18, 2019 Airway: patent Nausea: No Vomiting: No Pain Intensity: 0 Hydration Status: adequate Cardiopulmonary Status: at baseline Mental Status/LOC: patient returned to baseline Post-Anesthesia Complications: 0 Follow-up care needed: ready to discharge Tanya Santiago MD Jun 18, 2019 09:39
--- NOTE | 2019-06-18 18:00 | Procedure Note ---
DATE OF PROCEDURE: 06/18/2019 SURGEON: Bon Bryant M.D. PROCEDURE: Colonoscopy with biopsy. ANESTHESIA: Per Dr. Godwin. INSTRUMENT: Olympus adult flexible colonoscope. INDICATION: Diarrhea, abdominal pain, and weight loss. The procedure, risks, benefits, and possible consequences, including hemorrhage, aspiration, perforation and infection, and alternative treatments, were explained to the patient/legal guardian by Dr. Bon Bryant and the patient/legal guardian understood and accepted these risks. DESCRIPTION OF PROCEDURE: After informed consent was obtained and the patient was adequately sedated, first rectal exam was performed, which was positive for internal hemorrhoids. Then, the scope was advanced from the rectum into the cecum. Quality of prep unfortunately was poor. We could not examine the cecum very well and also say about 25% to 35% of the colonic mucosa was not examined with this prep. The patient had a total of 10 polyps removed, four from ascending and six from transverse, all small polyps, removed with cold biopsy forceps technique. No obvious mass was seen. There was evidence of diverticulosis mainly in the left colon, moderate diverticulosis. The patient also had evidence of internal hemorrhoids seen on retroflexion. Random biopsy from the right and left colon was obtained for evaluation of diarrhea. SUMMARY OF FINDINGS: 1. Poor prep. 2. Ten colonic polyps removed, see above for details. 3. Internal hemorrhoids. 4. Diverticulosis. RECOMMENDATIONS: 1. Follow up biopsy results and treat accordingly. 2. He needs repeat colonoscopy in one year given 10 polyps. Bon Bryant M.D. DR: Shahid JOB#: [id number] CC:
== END 2019-06-18 10:30 | disposition home or self-care (01) ==
LOC: GAS 07:00
DX: R19.7 Diarrhea, unspecified (principal); R10.9 Unspecified abdominal pain; R63.4 Abnormal weight loss; K63.5 Polyp of colon; K64.8 Other hemorrhoids; K57.90 Diverticulosis of intestine, part unspecified, without perforation or abscess without bleeding; I10 Essential (primary) hypertension; E78.5 Hyperlipidemia, unspecified; G47.33 Obstructive sleep apnea (adult) (pediatric); K21.9 Gastro-esophageal reflux disease without esophagitis; K74.60 Unspecified cirrhosis of liver; F03.90 Unspecified dementia, unspecified severity, without behavioral disturbance, psychotic disturbance, mood disturbance, and anxiety; Z86.73 Personal history of transient ischemic attack (TIA), and cerebral infarction without residual deficits; E11.9 Type 2 diabetes mellitus without complications; M19.90 Unspecified osteoarthritis, unspecified site; E66.9 Obesity, unspecified; Z90.49 Acquired absence of other specified parts of digestive tract; Z90.89 Acquired absence of other organs; Z68.34 Body mass index [BMI] 34.0-34.9, adult; D12.2 Benign neoplasm of ascending colon; D12.3 Benign neoplasm of transverse colon
CPT/HCPCS: 45380; J2704; J7120; 94003; 94150

== ENCOUNTER 2019-06-29 09:45 | Outpatient (CLI) | payer MEDICARE, OTHER ==
[2019-06-29] MEDS ORDERED: HYDROCHLOROTHIA25 MG ORAL (10:11)
[2019-06-29 10:12] VITALS: BP 116/57
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
== END 2019-06-29 14:41 | disposition home or self-care (01) ==
LOC: PAN 09:45
DX: K63.5 Polyp of colon (principal); Z90.49 Acquired absence of other specified parts of digestive tract; T07.XXXA Unspecified multiple injuries, initial encounter; K64.8 Other hemorrhoids; I10 Essential (primary) hypertension; K57.90 Diverticulosis of intestine, part unspecified, without perforation or abscess without bleeding
CPT/HCPCS: 99212

== ENCOUNTER 2019-12-28 20:31 | Inpatient (IN) | payer MEDICARE, OTHER ==
[~2019-12-28] VITALS: Ht 165.1 cm; Wt 84.7 kg
[2019-12-28 20:40] VITALS: BP 136/51
[2019-12-28] MEDS ORDERED: Vancomycin 1 GM in NS 275 ML IV ONE (20:45)
[2019-12-28] MEDS ORDERED: Cefepime HCl 2 GM in NS 110 ML IV ONE (20:45)
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
[2019-12-28 21:31] LABS: BASOPHILS % (AUTO) 0.9 % (0.0-2.0); EOSINOPHILS % (AUTO) 2.2 % (0.0-3.0); HEMATOCRIT 47.5 % (42.0-52.0); HEMOGLOBIN 15.1 G/DL (14.2-18.0); LYMPHOCYTES % (AUTO) 20.9 % (20.0-45.0); MEAN CORPUSCULAR VOLUME 85 FL (80-99); MONOCYTES % (AUTO) 5.5 % (1.0-10.0); NEUTROPHILS % (AUTO) 70.5 % (45.0-75.0); PLATELET COUNT 330 K/UL (150-450); RED BLOOD COUNT 5.56 M/UL (4.70-6.10); RED CELL DISTRIBUTION WIDTH 13.1 % (11.6-14.8)
[2019-12-28 21:51] LABS: ANION GAP 8 mmol/L (5-15); BLOOD UREA NITROGEN 31 mg/dL (7-18); CALCIUM 8.9 MG/DL (8.5-10.1); CARBON DIOXIDE 27 MMOL/L (21-32); CHLORIDE 104 MMOL/L (98-107); CREATININE 1.6 MG/DL (0.55-1.30); POTASSIUM 4.2 MMOL/L (3.5-5.1); SODIUM 139 MMOL/L (136-145)
[2019-12-28 21:55] LABS: ALANINE AMINOTRANSFERASE 54 U/L (12-78); ALBUMIN 2.6 G/DL (3.4-5.0); ALBUMIN/GLOBULIN RATIO 0.5 (1.0-2.7); ALKALINE PHOSPHATASE 296 U/L (46-116); ASPARTATE AMINO TRANSFERASE 86 U/L (15-37); BILIRUBIN,TOTAL 0.4 MG/DL (0.2-1.0); CREATINE KINASE 37 U/L (26-308)
[2019-12-28 22:12] LABS: APPEARANCE,URINE SLIGHTLY CLOUDY; BILIRUBIN, URINE NEGATIVE (NEGATIVE); GLUCOSE, URINE (UA) NEGATIVE (NEGATIVE); KETONES,URINE NEGATIVE (NEGATIVE); LEUKOCYTE ESTERASE ,URINE 3+ (NEGATIVE); NITRITE,URINE NEGATIVE (NEGATIVE); PH,URINE 5 (4.5-8.0); PROTEIN,URINE 1+ (NEGATIVE); UROBILINOGEN,URINE NORMAL MG/DL (0.0-1.0)
[2019-12-28 22:15] LABS: COLOR,URINE YELLOW
[2019-12-28 22:43] VITALS: BP 131/52
[2019-12-28 23:00] VITALS: BP 133/51
[2019-12-28] MEDS ORDERED: Albuterol/Ipratropium 3ml neb HHN PRN (23:30)
[2019-12-28] MEDS ORDERED: Miralax 17gm pkt ORAL PRN (23:30)
[2019-12-29] VITALS: BP 130/53
[2019-12-29 04:00] VITALS: BP 112/54
[2019-12-29] MEDS: NovoLOG Insulin Flexpen SUBQ SCH ×4 (06:30→21:00)
[2019-12-29 07:32] LABS: BASOPHILS % (AUTO) 1.2 % (0.0-2.0); EOSINOPHILS % (AUTO) 2.6 % (0.0-3.0); HEMATOCRIT 41.9 % (42.0-52.0); LYMPHOCYTES % (AUTO) 24.4 % (20.0-45.0); MEAN CORPUSCULAR VOLUME 81 FL (80-99); MONOCYTES % (AUTO) 6.1 % (1.0-10.0); NEUTROPHILS % (AUTO) 65.7 % (45.0-75.0); PLATELET COUNT 286 K/UL (150-450); RED BLOOD COUNT 5.17 M/UL (4.70-6.10); RED CELL DISTRIBUTION WIDTH 12.5 % (11.6-14.8); WHITE BLOOD COUNT 9.4 K/UL (4.8-10.8)
[2019-12-29 07:48] LABS: ALANINE AMINOTRANSFERASE 40 U/L (12-78); ALBUMIN/GLOBULIN RATIO 0.4 (1.0-2.7); ALKALINE PHOSPHATASE 220 U/L (46-116); ANION GAP 6 mmol/L (5-15); ASPARTATE AMINO TRANSFERASE 58 U/L (15-37); BILIRUBIN,TOTAL 0.6 MG/DL (0.2-1.0); BLOOD UREA NITROGEN 25 mg/dL (7-18); CALCIUM 8.2 MG/DL (8.5-10.1); CARBON DIOXIDE 28 MMOL/L (21-32); CHLORIDE 107 MMOL/L (98-107); CREATININE 1.2 MG/DL (0.55-1.30); POTASSIUM 3.9 MMOL/L (3.5-5.1); SODIUM 141 MMOL/L (136-145)
[2019-12-29 08:00] VITALS: BP 136/61
[2019-12-29] MEDS ORDERED: Memantine 10mg tab ORAL SCH (09:00)
[2019-12-29] MEDS ORDERED: Tamsulosin 0.4mg cap ORAL SCH (09:00)
[2019-12-29] MEDS: Heparin 5000 units/ml inj SUBQ SCH ×2 (09:26→21:22)
[2019-12-29] MEDS: Cefepime HCl 2 GM in D5W 110 ML IV SCH ×2 (09:27→21:23)
--- NOTE | 2019-12-29 10:09 | History & Physical ---
History and Physical History & Physicial Dictated for Int Med-DR Sam no. [id number] Dionicio Montana MD Dec 29, 2019 10:09
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
[2019-12-29 12:00] VITALS: BP 134/61
[2019-12-29 16:00] VITALS: BP 126/59
--- NOTE | 2019-12-29 17:09 | Consultation ---
History of Present Illness General Date patient seen: Dec 29, 2019 Chief Complaint: Male Urogenital Problems Present Illness HPI 79-year-old male with hx of cirrhosis, HTN, brought in by his daughter for generalized weakness and just not feeling well. He is alert and oriented x1 to person but not to place or to time. He had apparently some lab work done which demonstrated a white count of 25,000 as well as a UTI. Pt was also found to be dehydrated. Allergies: Coded Allergies: No Known Allergies (Verified , 03/26/19) Medication History Scheduled Atorvastatin Calcium* (Atorvastatin Calcium*), 80 MG ORAL BEDTIME, (Reported) Carvedilol* (Carvedilol*), 6.25 MG ORAL EVERY 12 HOURS, (Reported) Ergocalciferol (Vitamin D2)* (Vitamin D*), 50,000 UNIT ORAL ONCE A WEEK, ( Reported) Finasteride* (Proscar*), 5 MG ORAL DAILY, (Reported) Gabapentin* (Gabapentin*), 100 MG ORAL DAILY, (Reported) Hydrochlorothiazide* (Hydrochlorothiazide*), 25 MG ORAL DAILY, (Reported) Hydrochlorothiazide* (Hydrochlorothiazide*), 25 MG ORAL DAILY, (Reported) Memantine Hcl* (Namenda*), 5 MG ORAL DAILY, (Reported) Metformin Hcl* (Metformin Hcl*), 1,000 MG ORAL BID, (Reported) Tamsulosin HCl (Flomax), 0.4 MG ORAL DAILY, (Reported) Patient History Healthcare decision maker Resuscitation status Advanced Directive on File Past Medical/Surgical History Past Medical/Surgical History: (1) HTN (hypertension) (2) Diverticulosis (3) Cirrhosis Review of Systems All Other Systems: negative except mentioned in HPI Physical Exam General Appearance: WD/WN Lines, tubes and drains: peripheral HEENT: normocephalic, atraumatic Neck: non-tender, normal alignment Respiratory/Chest: chest wall non-tender, lungs clear Cardiovascular/Chest: normal peripheral pulses, normal rate Abdomen: normal bowel sounds, non tender Genitourinary/Rectal: normal genital exam Extremities: normal range of motion Skin Exam: normal pigmentation Last 24 Hour Vital Signs Date Time Temp Pulse Resp B/P (MAP) Pulse Ox O2 Delivery O2 Flow Rate FiO2 12/29/19 16:00 97.9 67 20 126/59 (81) 96 12/29/19 12:00 97.2 67 20 134/61 (85) 98 12/29/19 12:00 61 12/29/19 09:24 64 136/61 12/29/19 09:00 Room Air 12/29/19 08:00 65 12/29/19 08:00 98.1 64 20 136/61 (86) 96 12/29/19 04:00 97.9 66 20 112/54 (73) 96 12/29/19 04:00 62 12/29/19 00:27 Room Air 12/29/19 00:00 97.7 68 20 130/53 (78) 97 12/29/19 00:00 74 12/28/19 23:22 69 12/28/19 23:00 98.4 68 16 133/51 98 Room Air 12/28/19 23:00 98.4 68 16 133/51 98 Room Air 12/28/19 22:43 98.3 70 16 131/52 98 Room Air 12/28/19 20:40 98.6 70 16 136/51 98 Room Air 12/28/19 20:37 98.8 86 16 132/66 (88) 92 Room Air Intake and Output 12/28/19 12/29/19 19:00 07:00 Intake Total 2150 ml Balance 2150 ml Intake Oral 150 ml IV Total 2000 ml # Voids 2 # Bowel Movements 1 Laboratory Tests Test 12/28/19 21:00 12/28/19 21:04 12/28/19 21:50 12/29/19 05:33 White Blood Count 11.0 K/UL (4.8-10.8) H 9.4 K/UL (4.8-10.8) Red Blood Count 5.56 M/UL (4.70-6.10) 5.17 M/UL (4.70-6.10) Hemoglobin 15.1 G/DL (14.2-18.0) 14.0 G/DL (14.2-18.0) L Hematocrit 47.5 % (42.0-52.0) 41.9 % (42.0-52.0) L Mean Corpuscular Volume 85 FL (80-99) 81 FL (80-99) Mean Corpuscular Hemoglobin 27.1 PG (27.0-31.0) 27.1 PG (27.0-31.0) Mean Corpuscular Hemoglobin Concent 31.8 G/DL (32.0-36.0) L 33.3 G/DL (32.0-36.0) Red Cell Distribution Width 13.1 % (11.6-14.8) 12.5 % (11.6-14.8) Platelet Count 330 K/UL (150-450) 286 K/UL (150-450) Mean Platelet Volume 6.2 FL (6.5-10.1) L 5.3 FL (6.5-10.1) L Neutrophils (%) (Auto) 70.5 % (45.0-75.0) 65.7 % (45.0-75.0) Lymphocytes (%) (Auto) 20.9 % (20.0-45.0) 24.4 % (20.0-45.0) Monocytes (%) (Auto) 5.5 % (1.0-10.0) 6.1 % (1.0-10.0) Eosinophils (%) (Auto) 2.2 % (0.0-3.0) 2.6 % (0.0-3.0) Basophils (%) (Auto) 0.9 % (0.0-2.0) 1.2 % (0.0-2.0) Prothrombin Time 11.4 SEC (9.30-11.50) Prothromb Time International Ratio 1.0 (0.9-1.1) Activated Partial Thromboplast Time 32 SEC (23-33) Sodium Level 139 MMOL/L (136-145) 141 MMOL/L (136-145) Potassium Level 4.2 MMOL/L (3.5-5.1) 3.9 MMOL/L (3.5-5.1) Chloride Level 104 MMOL/L (98-107) 107 MMOL/L (98-107) Carbon Dioxide Level 27 MMOL/L (21-32) 28 MMOL/L (21-32) Anion Gap 8 mmol/L (5-15) 6 mmol/L (5-15) Blood Urea Nitrogen 31 mg/dL (7-18) H 25 mg/dL (7-18) H Creatinine 1.6 MG/DL (0.55-1.30) H 1.2 MG/DL (0.55-1.30) Estimat Glomerular Filtration Rate 41.8 mL/min (>60) 58.3 mL/min (>60) Glucose Level 163 MG/DL (74-106) H 94 MG/DL (74-106) Lactic Acid Level 1.80 mmol/L (0.4-2.0) Calcium Level 8.9 MG/DL (8.5-10.1) 8.2 MG/DL (8.5-10.1) L Magnesium Level 1.8 MG/DL (1.8-2.4) Total Bilirubin 0.4 MG/DL (0.2-1.0) 0.6 MG/DL (0.2-1.0) Aspartate Amino Transf (AST/SGOT) 86 U/L (15-37) H 58 U/L (15-37) H Alanine Aminotransferase (ALT/SGPT) 54 U/L (12-78) 40 U/L (12-78) Alkaline Phosphatase 296 U/L (46-116) H 220 U/L (46-116) H Total Creatine Kinase 37 U/L (26-308) Troponin I 0.000 ng/mL (0.000-0.056) Pro-B-Type Natriuretic Peptide 959 pg/mL (0-125) H Total Protein 8.3 G/DL (6.4-8.2) H 6.6 G/DL (6.4-8.2) Albumin 2.6 G/DL (3.4-5.0) L 2.0 G/DL (3.4-5.0) L Globulin 5.7 g/dL 4.6 g/dL Albumin/Globulin Ratio 0.5 (1.0-2.7) L 0.4 (1.0-2.7) L Arterial Blood pH 7.432 (7.350-7.450) Arterial Blood Partial Pressure CO2 34.4 mmHg (35.0-45.0) L Arterial Blood Partial Pressure O2 89.1 mmHg (75.0-100.0) Arterial Blood HCO3 22.4 mmol/L (22.0-26.0) Arterial Blood Oxygen Saturation 96.5 % (95-100) Arterial Blood Base Excess -1.1 (-2-2) Romario Test Positive Urine Color Yellow Urine Appearance Slightly cloudy Urine pH 5 (4.5-8.0) Urine Specific [place] 1.010 (1.005-1.035) Urine Protein 1+ (NEGATIVE) H Urine Glucose (UA) Negative (NEGATIVE) Urine Ketones Negative (NEGATIVE) Urine Blood 5+ (NEGATIVE) H Urine Nitrite Negative (NEGATIVE) Urine Bilirubin Negative (NEGATIVE) Urine Urobilinogen Normal MG/DL (0.0-1.0) Urine Leukocyte Esterase 3+ (NEGATIVE) H Urine RBC 60-80 /HPF (0 - 0) H Urine WBC 20-30 /HPF (0 - 0) H Urine Squamous Epithelial Cells None /LPF (NONE/OCC) Urine Bacteria Moderate /HPF (NONE) H Microbiology Date/Time Source Procedure Growth Status 12/28/19 21:00 Nasopharynx SARS-CoV-2 RdRp Gene Assay - Final Complete Height (Feet): 5 Height (Inches): 5.00 Weight (Pounds): 179 Medications Current Medications Medications (Trade) Dose Ordered Sig/Eula Route PRN Reason Start Time Stop Time Status Last Admin Dose Admin Acetaminophen (Tylenol) 650 mg Q4H PRN ORAL fever 12/28/19 23:30 01/27/20 23:29 Albuterol/ Ipratropium (Albuterol/ Ipratropium) 3 ml EVERY 4 HOURS PRN HHN Shortness of Breath 12/28/19 23:30 01/02/20 23:29 Carvedilol (Coreg) 6.25 mg EVERY 12 HOURS ORAL 12/29/19 09:00 01/28/20 08:59 12/29/19 09:24 Cefepime HCl 2 gm/ Dextrose 110 ml @ 220 mls/hr EVERY 12 HOURS IV 12/29/19 09:00 01/05/20 08:59 12/29/19 09:27 Dextrose (Dextrose 50%) 25 ml Q30M PRN IV Hypoglycemia 12/28/19 23:30 03/27/20 23:29 Dextrose (Dextrose 50%) 50 ml Q30M PRN IV Hypoglycemia 12/28/19 23:30 03/27/20 23:29 Finasteride (Proscar) 5 mg DAILY ORAL 12/29/19 09:00 03/28/20 08:59 12/29/19 09:25 Gabapentin (Neurontin) 100 mg DAILY ORAL 12/29/19 09:00 01/28/20 08:59 12/29/19 09:24 Heparin Sodium (Porcine) (Heparin 5000 units/ml) 5,000 units EVERY 12 HOURS SUBQ 12/29/19 09:00 02/12/20 08:59 12/29/19 09:26 Insulin Aspart (NovoLOG) BEFORE MEALS AND HS SUBQ 12/29/19 06:30 03/28/20 06:29 Memantine (Namenda) 5 mg DAILY ORAL 12/29/19 09:00 01/28/20 08:59 12/29/19 09:24 Ondansetron HCl (Zofran) 4 mg Q6H PRN IVP Nausea & Vomiting 12/28/19 23:30 01/27/20 23:29 Polyethylene Glycol (Miralax) 17 gm DAILYPRN PRN ORAL Constipation 12/28/19 23:30 01/27/20 23:29 Sodium Chloride 1,000 ml @ 75 mls/hr [id number] IV 12/29/19 00:30 01/28/20 00:29 12/29/19 14:14 Tamsulosin HCl (Flomax) 0.4 mg DAILY ORAL 12/29/19 09:00 01/28/20 08:59 12/29/19 09:25 Temazepam (Restoril) 15 mg HSPRN PRN ORAL Insomnia 12/28/19 23:30 01/04/20 23:29 Vancomycin HCl (Vanco pharmacy to dose) 1 ea DAILY PRN MISC PER RX PROTOCOL 12/29/19 13:30 01/28/20 13:29 Vancomycin HCl 1 gm/Dextrose 275 ml @ 184 mls/hr Q24H IVPB 12/29/19 21:00 01/03/20 20:59 Assessment/Plan Problem List: (1) UTI (urinary tract infection) ICD Codes: N39.0 - Urinary tract infection, site not specified SNOMED: 32955788 (2) Dehydration ICD Codes: E86.0 - Dehydration SNOMED: 63261935, 826029660 (3) HTN (hypertension) ICD Codes: I10 - HTN (hypertension) SNOMED: 40173605 Assessment/Plan: iv fluids downing culture urine electrolytes iv abx monitor BP dvt prophylaxis. Pastor Smith MD Dec 29, 2019 17:09
--- NOTE | 2019-12-29 17:10 | Diagnostic Imaging Report ---
Indication: Chest pain Technique: One view of the chest Comparison: 04/30/2016 Findings: Suboptimal inspiration. Right lateral pleural thickening is probably chronic. No definite infiltrates, effusions, or congestion. Interim thoracic spine fusion surgery. Impression: No definite acute process
[2019-12-29 20:00] VITALS: BP 143/63
[2019-12-29] MEDS ORDERED: Vancomycin 1 GM in D5W 275 ML IVPB SCH (21:00)
[2019-12-29] MEDS ORDERED: Miralax 17gm pkt ORAL PRN (23:30)
[2019-12-30] VITALS (7 sets, daily range): BP systolic 117–137; BP diastolic 51–75
[2019-12-30] MEDS ORDERED: Albuterol/Ipratropium 3ml neb HHN PRN (01:00)
[2019-12-30] MEDS: NovoLOG Insulin Flexpen SUBQ SCH ×4 (05:59→20:40)
[2019-12-30 06:48] LABS: BASOPHILS % (AUTO) 1.1 % (0.0-2.0); EOSINOPHILS % (AUTO) 3.7 % (0.0-3.0); HEMATOCRIT 44.9 % (42.0-52.0); HEMOGLOBIN 14.4 G/DL (14.2-18.0); LYMPHOCYTES % (AUTO) 23.6 % (20.0-45.0); MEAN CORPUSCULAR VOLUME 83 FL (80-99); MONOCYTES % (AUTO) 4.6 % (1.0-10.0); PLATELET COUNT 339 K/UL (150-450); RED BLOOD COUNT 5.44 M/UL (4.70-6.10); RED CELL DISTRIBUTION WIDTH 12.4 % (11.6-14.8); WHITE BLOOD COUNT 10.2 K/UL (4.8-10.8)
[2019-12-30 07:14] LABS: ALANINE AMINOTRANSFERASE 36 U/L (12-78); ALBUMIN 2.2 G/DL (3.4-5.0); ALBUMIN/GLOBULIN RATIO 0.4 (1.0-2.7); ALKALINE PHOSPHATASE 216 U/L (46-116); ANION GAP 8 mmol/L (5-15); ASPARTATE AMINO TRANSFERASE 42 U/L (15-37); BILIRUBIN,TOTAL 0.6 MG/DL (0.2-1.0); BLOOD UREA NITROGEN 21 mg/dL (7-18); CALCIUM 8.9 MG/DL (8.5-10.1); CARBON DIOXIDE 27 MMOL/L (21-32); CHLORIDE 104 MMOL/L (98-107); CREATININE 1.3 MG/DL (0.55-1.30); POTASSIUM 4.3 MMOL/L (3.5-5.1); SODIUM 139 MMOL/L (136-145)
[2019-12-30 07:24] LABS: PHOSPHORUS 3.5 MG/DL (2.5-4.9)
[2019-12-30] MEDS: Memantine 10mg tab ORAL SCH (08:57)
[2019-12-30] MEDS: Tamsulosin 0.4mg cap ORAL SCH (08:58)
[2019-12-30] MEDS: Heparin 5000 units/ml inj SUBQ SCH ×2 (08:59→20:43)
[2019-12-30] MEDS: Cefepime HCl 2 GM in D5W 110 ML IV SCH ×2 (09:00→20:37)
--- NOTE | 2019-12-30 11:35 | Diagnostic Imaging Report ---
Indication: Dyspnea Technique: One view of the chest Comparison: 12/28/2019 Findings: Bilateral lateral pleural thickening is unchanged. No definite acute infiltrates, effusions, congestion. The heart is borderline enlarged. Thoracic spine hardware is again demonstrated. Findings are unchanged Impression: No definite acute process
--- NOTE | 2019-12-30 16:05 | Pulmonology Progress Note ---
Subjective ROS Limited/Unobtainable: Yes Interval Events: confused Constitutional: Reports: no symptoms HEENT: Repors: no symptoms Allergies: Coded Allergies: No Known Allergies (Verified , 03/26/19) Objective Last 24 Hour Vital Signs Date Time Temp Pulse Resp B/P (MAP) Pulse Ox O2 Delivery O2 Flow Rate FiO2 12/30/19 12:00 97.7 56 20 117/51 (73) 98 12/30/19 09:00 Room Air 12/30/19 08:58 58 130/66 12/30/19 08:00 97.9 58 20 130/66 (87) 98 12/30/19 04:00 97.3 63 19 137/67 (90) 97 12/30/19 00:00 97.8 61 19 134/59 (84) 95 12/29/19 21:20 78 143/63 12/29/19 21:00 Room Air 12/29/19 20:00 98.0 63 20 143/63 (89) 95 12/29/19 20:00 66 Intake and Output 12/29/19 12/30/19 19:00 07:00 Intake Total 320 ml Output Total 350 ml 1100 ml Balance -30 ml -1100 ml Intake Oral 320 ml Output Urine Total 350 ml 1100 ml # Voids 2 2 General Appearance: WD/WN HEENT: normocephalic, anicteric Respiratory: chest wall non-tender, lungs clear Cardiovascular: normal peripheral pulses, normal rate Abdomen: normal bowel sounds, no organomegaly Extremities: no cyanosis Neurologic: steam blocker II-XII grossly normal Microbiology Date/Time Source Procedure Growth Status 12/28/19 21:15 Blood Blood Culture - Preliminary NO GROWTH AFTER 24 HOURS Resulted 12/28/19 21:00 Blood Blood Culture - Preliminary NO GROWTH AFTER 24 HOURS Resulted 12/28/19 21:00 Nasopharynx SARS-CoV-2 RdRp Gene Assay - Final Complete 12/28/19 21:50 Urine,Clean Catch Urine Culture - Preliminary Resulted Laboratory Tests 12/29/19 21:15: POC Whole Blood Glucose 117H 12/30/19 05:20: White Blood Count 10.2, Red Blood Count 5.44, Hemoglobin 14.4, Hematocrit 44.9, Mean Corpuscular Volume 83, Mean Corpuscular Hemoglobin 26.6L, Mean Corpuscular Hemoglobin Concent 32.1, Red Cell Distribution Width 12.4, Platelet Count 339, Mean Platelet Volume 5.1L, Neutrophils (%) (Auto) 67.0, Lymphocytes (%) (Auto) 23.6, Monocytes (%) (Auto) 4.6, Eosinophils (%) (Auto) 3.7H, Basophils (%) (Auto ) 1.1, Erythrocyte Sedimentation Rate 36H, Sodium Level 139, Potassium Level 4.3 , Chloride Level 104, Carbon Dioxide Level 27, Anion Gap 8, Blood Urea Nitrogen 21H, Creatinine 1.3, Estimat Glomerular Filtration Rate 53.1, Glucose Level 111H , Calcium Level 8.9, Phosphorus Level 3.5, Magnesium Level 1.6L, Total Bilirubin 0.6, Aspartate Amino Transf (AST/SGOT) 42H, Alanine Aminotransferase ( ALT/SGPT) 36, Alkaline Phosphatase 216H, C-Reactive Protein, Quantitative 12.4H , Total Protein 7.1, Albumin 2.2L, Globulin 4.9, Albumin/Globulin Ratio 0.4L Current Medications Medications (Trade) Dose Ordered Sig/Eula Route PRN Reason Start Time Stop Time Status Last Admin Dose Admin Acetaminophen (Tylenol) 650 mg Q4H PRN ORAL fever 12/29/19 23:30 01/27/20 23:29 Albuterol/ Ipratropium (Albuterol/ Ipratropium) 3 ml EVERY 4 HOURS PRN HHN Shortness of Breath 12/30/19 01:00 01/02/20 23:29 Carvedilol (Coreg) 6.25 mg EVERY 12 HOURS ORAL 12/30/19 09:00 01/28/20 08:59 12/30/19 08:58 Cefepime HCl 2 gm/ Dextrose 110 ml @ 220 mls/hr EVERY 12 HOURS IV 12/30/19 09:00 01/05/20 08:59 12/30/19 09:00 Dextrose (Dextrose 50%) 25 ml Q30M PRN IV Hypoglycemia 12/29/19 23:00 03/27/20 23:29 Dextrose (Dextrose 50%) 50 ml Q30M PRN IV Hypoglycemia 12/29/19 23:00 03/27/20 23:29 Finasteride (Proscar) 5 mg DAILY ORAL 12/30/19 09:00 03/28/20 08:59 12/30/19 08:58 Gabapentin (Neurontin) 100 mg DAILY ORAL 12/30/19 09:00 01/28/20 08:59 12/30/19 08:57 Heparin Sodium (Porcine) (Heparin 5000 units/ml) 5,000 units EVERY 12 HOURS SUBQ 12/30/19 09:00 02/12/20 08:59 12/30/19 08:59 Insulin Aspart (NovoLOG) BEFORE MEALS AND HS SUBQ 12/30/19 06:30 03/28/20 06:29 Memantine (Namenda) 5 mg DAILY ORAL 12/30/19 09:00 01/28/20 08:59 12/30/19 08:57 Ondansetron HCl (Zofran) 4 mg Q6H PRN IVP Nausea & Vomiting 12/29/19 23:30 01/27/20 23:29 Polyethylene Glycol (Miralax) 17 gm DAILYPRN PRN ORAL Constipation 12/29/19 23:30 01/27/20 23:29 Sodium Chloride 1,000 ml @ 75 mls/hr [id number] IV 12/29/19 22:45 01/28/20 00:29 12/30/19 11:46 Tamsulosin HCl (Flomax) 0.4 mg DAILY ORAL 12/30/19 09:00 01/28/20 08:59 12/30/19 08:58 Temazepam (Restoril) 15 mg HSPRN PRN ORAL Insomnia 12/29/19 23:30 01/04/20 23:29 Vancomycin HCl (Vanco pharmacy to dose) 1 ea DAILY PRN MISC PER RX PROTOCOL 12/30/19 09:00 01/28/20 13:29 Vancomycin HCl 1 gm/Dextrose 275 ml @ 184 mls/hr Q24H IVPB 12/30/19 21:00 01/03/20 20:59 Assessment/Plan Problems: (1) UTI (urinary tract infection) (2) Dehydration (3) HTN (hypertension) Assessment/Plan mg supplement iv fluids downing culture urine electrolytes iv abx monitor BP dvt prophylaxis. Pastor Smith MD Dec 30, 2019 16:05
--- NOTE | 2019-12-30 18:55 | Internal Med Progress Note ---
Subjective Date of Service: Dec 30, 2019 Physician Name Dionicio Montana Attending Physician Artur Sam MD Current Medications Medications (Trade) Dose Ordered Sig/Eula Route PRN Reason Start Time Stop Time Status Last Admin Dose Admin Acetaminophen (Tylenol) 650 mg Q4H PRN ORAL fever 12/29/19 23:30 01/27/20 23:29 Albuterol/ Ipratropium (Albuterol/ Ipratropium) 3 ml EVERY 4 HOURS PRN HHN Shortness of Breath 12/30/19 01:00 01/02/20 23:29 Carvedilol (Coreg) 6.25 mg EVERY 12 HOURS ORAL 12/30/19 09:00 01/28/20 08:59 12/30/19 08:58 Cefepime HCl 2 gm/ Dextrose 110 ml @ 220 mls/hr EVERY 12 HOURS IV 12/30/19 09:00 01/05/20 08:59 12/30/19 09:00 Dextrose (Dextrose 50%) 25 ml Q30M PRN IV Hypoglycemia 12/29/19 23:00 03/27/20 23:29 Dextrose (Dextrose 50%) 50 ml Q30M PRN IV Hypoglycemia 12/29/19 23:00 03/27/20 23:29 Finasteride (Proscar) 5 mg DAILY ORAL 12/30/19 09:00 03/28/20 08:59 12/30/19 08:58 Gabapentin (Neurontin) 100 mg DAILY ORAL 12/30/19 09:00 01/28/20 08:59 12/30/19 08:57 Heparin Sodium (Porcine) (Heparin 5000 units/ml) 5,000 units EVERY 12 HOURS SUBQ 12/30/19 09:00 02/12/20 08:59 12/30/19 08:59 Insulin Aspart (NovoLOG) BEFORE MEALS AND HS SUBQ 12/30/19 06:30 03/28/20 06:29 Memantine (Namenda) 5 mg DAILY ORAL 12/30/19 09:00 01/28/20 08:59 12/30/19 08:57 Ondansetron HCl (Zofran) 4 mg Q6H PRN IVP Nausea & Vomiting 12/29/19 23:30 01/27/20 23:29 Polyethylene Glycol (Miralax) 17 gm DAILYPRN PRN ORAL Constipation 12/29/19 23:30 01/27/20 23:29 Sodium Chloride 1,000 ml @ 75 mls/hr [id number] IV 12/29/19 22:45 01/28/20 00:29 12/30/19 11:46 Tamsulosin HCl (Flomax) 0.4 mg DAILY ORAL 12/30/19 09:00 01/28/20 08:59 12/30/19 08:58 Temazepam (Restoril) 15 mg HSPRN PRN ORAL Insomnia 12/29/19 23:30 01/04/20 23:29 Vancomycin HCl (Vanco pharmacy to dose) 1 ea DAILY PRN MISC PER RX PROTOCOL 12/30/19 09:00 01/28/20 13:29 Vancomycin HCl 1 gm/Dextrose 275 ml @ 184 mls/hr Q24H IVPB 12/30/19 21:00 01/03/20 20:59 Allergies: Coded Allergies: No Known Allergies (Verified , 03/26/19) ROS Limited/Unobtainable: No Constitutional: Reports: weakness HEENT: Reports: no symptoms Cardiovascular: Reports: no symptoms Respiratory: Reports: no symptoms Gastrointestinal/Abdominal: Reports: no symptoms Genitourinary: Reports: no symptoms Neurologic/Psychiatric: Reports: no symptoms Subjective 79 YO M admitted with generalized weakness and leukocytosis. Now UTI. Cover for Int ruth-Dr Sam Objective Last Vital Signs Date Time Temp Pulse Resp B/P (MAP) Pulse Ox O2 Delivery O2 Flow Rate FiO2 12/30/19 16:00 97.4 62 22 137/72 (93) 98 12/30/19 09:00 Room Air Laboratory Tests Test 12/29/19 21:15 12/30/19 05:20 POC Whole Blood Glucose 117 MG/DL (74-106) H White Blood Count 10.2 K/UL (4.8-10.8) Red Blood Count 5.44 M/UL (4.70-6.10) Hemoglobin 14.4 G/DL (14.2-18.0) Hematocrit 44.9 % (42.0-52.0) Mean Corpuscular Volume 83 FL (80-99) Mean Corpuscular Hemoglobin 26.6 PG (27.0-31.0) L Mean Corpuscular Hemoglobin Concent 32.1 G/DL (32.0-36.0) Red Cell Distribution Width 12.4 % (11.6-14.8) Platelet Count 339 K/UL (150-450) Mean Platelet Volume 5.1 FL (6.5-10.1) L Neutrophils (%) (Auto) 67.0 % (45.0-75.0) Lymphocytes (%) (Auto) 23.6 % (20.0-45.0) Monocytes (%) (Auto) 4.6 % (1.0-10.0) Eosinophils (%) (Auto) 3.7 % (0.0-3.0) H Basophils (%) (Auto) 1.1 % (0.0-2.0) Erythrocyte Sedimentation Rate 36 MM/HR (0-20) H Sodium Level 139 MMOL/L (136-145) Potassium Level 4.3 MMOL/L (3.5-5.1) Chloride Level 104 MMOL/L (98-107) Carbon Dioxide Level 27 MMOL/L (21-32) Anion Gap 8 mmol/L (5-15) Blood Urea Nitrogen 21 mg/dL (7-18) H Creatinine 1.3 MG/DL (0.55-1.30) Estimat Glomerular Filtration Rate 53.1 mL/min (>60) Glucose Level 111 MG/DL (74-106) H Calcium Level 8.9 MG/DL (8.5-10.1) Phosphorus Level 3.5 MG/DL (2.5-4.9) Magnesium Level 1.6 MG/DL (1.8-2.4) L Total Bilirubin 0.6 MG/DL (0.2-1.0) Aspartate Amino Transf (AST/SGOT) 42 U/L (15-37) H Alanine Aminotransferase (ALT/SGPT) 36 U/L (12-78) Alkaline Phosphatase 216 U/L (46-116) H C-Reactive Protein, Quantitative 12.4 mg/dL (0.00-0.90) H Total Protein 7.1 G/DL (6.4-8.2) Albumin 2.2 G/DL (3.4-5.0) L Globulin 4.9 g/dL Albumin/Globulin Ratio 0.4 (1.0-2.7) L Microbiology Date/Time Source Procedure Growth Status 12/28/19 21:15 Blood Blood Culture - Preliminary NO GROWTH AFTER 24 HOURS Resulted 12/28/19 21:00 Blood Blood Culture - Preliminary NO GROWTH AFTER 24 HOURS Resulted 12/28/19 21:00 Nasopharynx SARS-CoV-2 RdRp Gene Assay - Final Complete 12/28/19 21:50 Urine,Clean Catch Urine Culture - Preliminary Resulted Intake and Output 12/29/19 12/30/19 19:00 07:00 Intake Total 320 ml 75 ml Output Total 350 ml 1100 ml Balance -30 ml -1025 ml Intake Oral 320 ml IV Total 75 ml Output Urine Total 350 ml 1100 ml # Voids 2 2 Objective PHYSICAL EXAMINATION: GENERAL: The patient is well-developed and well-nourished male, in no apparent distress. HEENT: Eyes, pupils are equal and responsive to light and accommodation. Extraocular movements are intact. NECK: Supple without lymphadenopathy. CHEST: Lungs are clear to auscultation bilaterally without wheezes or rales. CARDIOVASCULAR: Regular rate. S1 and S2 are normal without murmurs, rubs, or gallops. ABDOMEN: Soft, nontender, nondistended. Positive bowel sounds. No evidence of hepatosplenomegaly. Currently, no rebound or guarding noted. EXTREMITIES: Negative for clubbing, cyanosis, or edema. RECTAL: Not performed. GENITAL: Not performed. NEUROLOGICAL: Cranial nerves II through XII grossly intact without focal deficits. Motor strength is 5/5 bilaterally. Deep tendon reflexes are 2+, plantar. Assessment/Plan Assessment/Plan ASSESSMENT: This is an 79-year-old male. 1. Generalized weakness. 2. Urinary tract infection. 3. Diabetes type 2. 4. Hypertension. 5. Hypercholesterolemia. 6. Liver cirrhosis. 7. Diverticulosis. 8. Leukocytosis-resolved TREATMENT: 1. Generalized weakness/urinary tract infection. The patient has been started empirically on vancomycin and cefepime. Urine culture is pending. Await ID and sensitivity of urine culture. 2. Diabetes type 2. A NovoLog sliding scale has been instituted. 3. Hypertension. Continue Coreg and hydrochlorothiazide as above. 4. Hypercholesterolemia. Continue atorvastatin as above. 5. Liver cirrhosis. 6. Diverticulosis. Dionicio Montana MD Dec 30, 2019 18:55
[2019-12-30] MEDS ORDERED: Vancomycin 1 GM in D5W 275 ML IVPB SCH (21:00)
[2019-12-31 04:00] VITALS: BP 121/63
[2019-12-31] MEDS: NovoLOG Insulin Flexpen SUBQ SCH ×3 (05:43→16:30)
[2019-12-31 07:19] LABS: EOSINOPHILS % (AUTO) 4.2 % (0.0-3.0); HEMATOCRIT 42.8 % (42.0-52.0); LYMPHOCYTES % (AUTO) 23.9 % (20.0-45.0); MEAN CORPUSCULAR VOLUME 82 FL (80-99); MONOCYTES % (AUTO) 4.7 % (1.0-10.0); NEUTROPHILS % (AUTO) 66.2 % (45.0-75.0); PLATELET COUNT 387 K/UL (150-450); RED BLOOD COUNT 5.19 M/UL (4.70-6.10); RED CELL DISTRIBUTION WIDTH 12.2 % (11.6-14.8); WHITE BLOOD COUNT 10.9 K/UL (4.8-10.8)
[2019-12-31 07:30] LABS: ALBUMIN/GLOBULIN RATIO 0.4 (1.0-2.7); BILIRUBIN,TOTAL 0.5 MG/DL (0.2-1.0); CALCIUM 8.3 MG/DL (8.5-10.1); CREATININE 1.3 MG/DL (0.55-1.30); PHOSPHORUS 3.5 MG/DL (2.5-4.9); POTASSIUM 4.2 MMOL/L (3.5-5.1)
[2019-12-31 08:00] VITALS: BP 151/66
[2019-12-31] MEDS: Memantine 10mg tab ORAL SCH (08:38)
[2019-12-31] MEDS: Tamsulosin 0.4mg cap ORAL SCH (08:39)
[2019-12-31] MEDS: Heparin 5000 units/ml inj SUBQ SCH (08:41)
[2019-12-31] MEDS: Cefepime HCl 2 GM in D5W 110 ML IV SCH (08:42)
[2019-12-31 12:00] VITALS: BP 103/52
--- NOTE | 2019-12-31 14:05 | Pulmonology Progress Note ---
Subjective ROS Limited/Unobtainable: No Interval Events: confused Constitutional: Reports: no symptoms HEENT: Repors: no symptoms Allergies: Coded Allergies: No Known Allergies (Verified , 03/26/19) Objective Last 24 Hour Vital Signs Date Time Temp Pulse Resp B/P (MAP) Pulse Ox O2 Delivery O2 Flow Rate FiO2 12/31/19 12:00 98.1 53 18 103/52 (69) 96 12/31/19 09:00 Room Air 12/31/19 08:39 72 151/66 12/31/19 08:00 98.3 72 18 151/66 (94) 99 12/31/19 04:00 97.3 59 18 121/63 (82) 96 12/30/19 23:42 98.0 57 18 118/58 (78) 98 12/30/19 21:00 Room Air 12/30/19 20:44 59 125/75 12/30/19 20:22 62 20 97 Room Air 21 12/30/19 20:00 97.3 59 18 125/75 (92) 96 12/30/19 16:00 97.4 62 22 137/72 (93) 98 Intake and Output 12/30/19 12/31/19 19:00 07:00 Intake Total 1260 ml 400 ml Output Total 1200 ml 2300 ml Balance 60 ml -1900 ml Intake Oral 300 ml 400 ml IV Total 960 ml Output Urine Total 1200 ml 2300 ml # Voids 3 5 # Bowel Movements 1 General Appearance: WD/WN HEENT: normocephalic, anicteric Respiratory: chest wall non-tender, lungs clear Cardiovascular: normal peripheral pulses, normal rate Abdomen: normal bowel sounds, no organomegaly Extremities: no cyanosis Neurologic: director religious education II-XII grossly normal Microbiology Date/Time Source Procedure Growth Status 12/28/19 21:15 Blood Blood Culture - Preliminary NO GROWTH AFTER 48 HOURS Resulted 12/28/19 21:00 Blood Blood Culture - Preliminary NO GROWTH AFTER 48 HOURS Resulted 12/28/19 21:00 Nasopharynx SARS-CoV-2 RdRp Gene Assay - Final Complete 12/28/19 21:50 Urine,Clean Catch Urine Culture - Preliminary Gram Negative Saud Resulted Laboratory Tests 12/30/19 16:46: POC Whole Blood Glucose 109H 12/30/19 20:04: POC Whole Blood Glucose 144H 12/31/19 05:35: White Blood Count 10.9H, Red Blood Count 5.19, Hemoglobin 14.0L, Hematocrit 42.8 , Mean Corpuscular Volume 82, Mean Corpuscular Hemoglobin 27.0, Mean Corpuscular Hemoglobin Concent 32.8, Red Cell Distribution Width 12.2, Platelet Count 387, Mean Platelet Volume 5.0L, Neutrophils (%) (Auto) 66.2, Lymphocytes ( %) (Auto) 23.9, Monocytes (%) (Auto) 4.7, Eosinophils (%) (Auto) 4.2H, Basophils (%) (Auto) 1.0, Erythrocyte Sedimentation Rate 70H, Sodium Level 140, Potassium Level 4.2, Chloride Level 107, Carbon Dioxide Level 26, Anion Gap 7, Blood Urea Nitrogen 20H, Creatinine 1.3, Estimat Glomerular Filtration Rate 53.1 , Glucose Level 103, Calcium Level 8.3L, Phosphorus Level 3.5, Magnesium Level 2.1, Total Bilirubin 0.5, Aspartate Amino Transf (AST/SGOT) 37, Alanine Aminotransferase (ALT/SGPT) 28, Alkaline Phosphatase 180H, C-Reactive Protein, Quantitative 7.1H, Total Protein 6.6, Albumin 2.0L, Globulin 4.6, Albumin/ Globulin Ratio 0.4L 12/31/19 11:52: POC Whole Blood Glucose 108H Current Medications Medications (Trade) Dose Ordered Sig/Eula Route PRN Reason Start Time Stop Time Status Last Admin Dose Admin Acetaminophen (Tylenol) 650 mg Q4H PRN ORAL Fever (T>100.5) 12/31/19 11:15 01/30/20 11:14 Acetaminophen (Tylenol) 650 mg Q4H PRN ORAL Mild Pain (Pain Scale 1-3) 12/31/19 11:30 01/27/20 23:29 12/31/19 11:35 Albuterol/ Ipratropium (Albuterol/ Ipratropium) 3 ml EVERY 4 HOURS PRN HHN Shortness of Breath 12/30/19 01:00 01/02/20 23:29 Carvedilol (Coreg) 6.25 mg EVERY 12 HOURS ORAL 12/31/19 21:00 01/28/20 20:59 Cefepime HCl 2 gm/ Dextrose 110 ml @ 220 mls/hr EVERY 12 HOURS IV 12/30/19 09:00 01/05/20 08:59 12/31/19 08:42 Dextrose (Dextrose 50%) 25 ml Q30M PRN IV Hypoglycemia 12/29/19 23:00 03/27/20 23:29 Dextrose (Dextrose 50%) 50 ml Q30M PRN IV Hypoglycemia 12/29/19 23:00 03/27/20 23:29 Finasteride (Proscar) 5 mg DAILY ORAL 12/30/19 09:00 03/28/20 08:59 12/31/19 08:39 Gabapentin (Neurontin) 100 mg DAILY ORAL 12/30/19 09:00 01/28/20 08:59 12/31/19 08:38 Heparin Sodium (Porcine) (Heparin 5000 units/ml) 5,000 units EVERY 12 HOURS SUBQ 12/30/19 09:00 02/12/20 08:59 12/31/19 08:41 Insulin Aspart (NovoLOG) BEFORE MEALS AND HS SUBQ 12/30/19 06:30 03/28/20 06:29 12/30/19 20:40 Memantine (Namenda) 5 mg DAILY ORAL 12/30/19 09:00 01/28/20 08:59 12/31/19 08:38 Ondansetron HCl (Zofran) 4 mg Q6H PRN IVP Nausea & Vomiting 12/29/19 23:30 01/27/20 23:29 Polyethylene Glycol (Miralax) 17 gm DAILYPRN PRN ORAL Constipation 12/29/19 23:30 01/27/20 23:29 Sodium Chloride 1,000 ml @ 75 mls/hr [id number] IV 12/29/19 22:45 01/28/20 00:29 12/31/19 00:53 Tamsulosin HCl (Flomax) 0.4 mg DAILY ORAL 12/30/19 09:00 01/28/20 08:59 12/31/19 08:39 Temazepam (Restoril) 15 mg HSPRN PRN ORAL Insomnia 12/29/19 23:30 01/04/20 23:29 Vancomycin HCl (Vanco pharmacy to dose) 1 ea DAILY PRN MISC PER RX PROTOCOL 12/30/19 09:00 01/28/20 13:29 Vancomycin HCl 1 gm/Dextrose 275 ml @ 184 mls/hr Q24H IVPB 12/30/19 21:00 01/03/20 20:59 12/30/19 22:30 Assessment/Plan Problems: (1) UTI (urinary tract infection) (2) Dehydration (3) HTN (hypertension) Assessment/Plan mg supplement iv fluids downing culture, urine is pending ID consult pending urine electrolytes iv abx monitor BP dvt prophylaxis. Pastor Smith MD Dec 31, 2019 14:05
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
[2019-12-31 16:00] VITALS: BP 110/62
[2019-12-31] MEDS ORDERED: CEPHALEXIN500 MG ORAL (16:00)
--- NOTE | 2019-12-31 16:05 | Discharge Summary ---
Discharge Summary Hospital Course Date of Admission Dec 28, 2019 at 21:16 Date of Discharge Admitting Diagnosis SEPSIS HPI Antonio West is a 79 year old male who was admitted on Dec 28, 2019 at 21:16 for Sepsis Hospital Course Last 24 Hour Vital Signs Date Time Temp Pulse Resp B/P (MAP) Pulse Ox O2 Delivery O2 Flow Rate FiO2 12/31/19 16:00 98.0 57 19 110/62 (78) 96 12/31/19 12:00 98.1 53 18 103/52 (69) 96 12/31/19 09:00 Room Air 12/31/19 08:39 72 151/66 12/31/19 08:00 98.3 72 18 151/66 (94) 99 12/31/19 04:00 97.3 59 18 121/63 (82) 96 12/30/19 23:42 98.0 57 18 118/58 (78) 98 12/30/19 21:00 Room Air 12/30/19 20:44 59 125/75 12/30/19 20:22 62 20 97 Room Air 21 12/30/19 20:00 97.3 59 18 125/75 (92) 96 Physical Exam General: No acute distress, awake and alert HEENT: NCAT, sclera anicteric, PERRL, EOMI. Neck: Supple, no significant jugular venous distention, Lungs: Good inspiratory effort, no accessory muscle use, clear to auscultation bilaterally, no Wheeze or Rales. Heart: Regular rate and rhythm, normal S1/S2, no murmurs/gallops Abdomen: soft, nontender, nondistended. Normoactive bowel sounds, morbid obesity. / Rectal: Refused and deferred. Extremities: No Cyanosis , clubbing or edema. Neuro: A&O x 3, Able to move all extremities Skin: warm, no rashes or lesions Psych: Normal mood and affect Discharge Discharge Vital Signs Last Vital Signs Date Time Temp Pulse Resp B/P (MAP) Pulse Ox O2 Delivery O2 Flow Rate FiO2 12/31/19 12:00 98.1 53 18 103/52 (69) 96 12/31/19 09:00 Room Air 12/30/19 20:22 21 Discharge Disposition Patient was discharged to Artur Sam MD Dec 31, 2019 16:05
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
[2019-12-31] MEDS ORDERED: Carvedilol 6.25mg Tab ORAL SCH (21:00)
[2019-12-31] MEDS ORDERED: Cephalexin 500mg cap ORAL SCH (21:00)
--- NOTE | 2020-01-04 22:15 | Coder Physician Query ---
Clarification is required for compliance, coding accuracy, and to reflect severity of illness for this patient. Dear Dr. CRESPO Date:01/04/2020 OIL PROSPECTING OBSERVER: LAZARA BAILON Patient's doctor Dr. Sam called ahead he states that the patient had some lab work done which demonstrated a white count of 25,000 as well as a UTI. Shortly after initial evaluation,the patient was admitted to the hospital with sepsis possible due to the urinary tract infection as well as severe dehydration and acute kidney injury. Generalized weakness/urinary tract infection. The patient has been started empirically on vancomycin and cefepime. UTI -9/8 u/a wbc 20-30, nit neg, leuk +3; ucx <10k GNR Bcx NTD Afebrile Leukocytosis, resolving --- A posssible diagnois of SEPSIS was made in the medical record in the Discharge summary. Upon review, it is difficult to determine whether this diagnosis of SEPSIS has been ruled in, ruled out,or is still being worked up. Please indicate below the status of the aforementioned diagnosis. [] Ruled out [] Treated and resolve [X] Presumed and treated [] Currently under treatment [] Still being worked-up Physician signature Date Please also document in your Progress Notes and/or Discharge Summary and indicate if the condition was present on admission. KAROLINED
== END 2019-12-31 17:59 | disposition home or self-care (01) | DRG 872 ==
LOC: EMR 20:55 → 2E 21:16 → EDBEDREQ 22:26 → 4E 12-29 22:27
DX: A41.9 Sepsis, unspecified organism (principal); N39.0 Urinary tract infection, site not specified; N17.9 Acute kidney failure, unspecified; I10 Essential (primary) hypertension; K74.60 Unspecified cirrhosis of liver; K57.90 Diverticulosis of intestine, part unspecified, without perforation or abscess without bleeding; Z86.010 Personal history of colon polyps; Z90.49 Acquired absence of other specified parts of digestive tract; Z79.84 Long term (current) use of oral hypoglycemic drugs; E78.5 Hyperlipidemia, unspecified; E66.01 Morbid (severe) obesity due to excess calories; E86.0 Dehydration; Z86.73 Personal history of transient ischemic attack (TIA), and cerebral infarction without residual deficits
CPT/HCPCS: 36415; 36600; 71045; 80053; 81003; 82550; 82803; 82962; 83605; 83735; 83880; 84100; 84484; 85025; 85610; 85651; 85730; 86140; 87040; 87086; 87181; 93005; 94664; 96365; 96368; 99285; J1815; J7030; U0002